=== PATIENT | male | born 1995 | race African-American/Black ===

== ENCOUNTER 2018-02-19 15:18 | Emergency (ER) | payer SELFPAY ==
[2018-02-19] MEDS ORDERED: Ketorolac Tromethamine 60 MG/2 ML VIAL ONE (17:10)
[2018-02-19] MEDS ORDERED: HYDROcodone/Acetaminophen 5/325 mg Tablet ONE (17:10)
--- NOTE | 2018-02-19 18:31 | RAD ---
LUMBAR SPINE THREE VIEWS: INDICATIONS: Back injured while lifting a heavy piece of furniture. COMPARISON: None. FINDINGS: There are five lumbar type vertebrae. Spine alignment and vertebral body heights are preserved. The re is mild loss of the normal disk space height at L5-S1, possibly related to early disk degenerative disease. The SI joints are normal appearing. IMPRESSION: 1. No acute osseous abnormality. 2. Mild suspected disk degenerative disease at L5-S1. POS: [facility]
== END 2018-02-19 18:29 | disposition home or self-care (01) ==
LOC: ERS 15:18
DX: M62.830 Muscle spasm of back (principal); M54.5 Low back pain; F17.200 Nicotine dependence, unspecified, uncomplicated; X50.9XXA Other and unspecified overexertion or strenuous movements or postures, initial encounter
CPT/HCPCS: 72100; 96372; J1885

== ENCOUNTER 2018-02-24 14:14 | Emergency (ER) | payer SELFPAY ==
[2018-02-24] MEDS ORDERED: Cyclobenzaprine 10 MG TAB ONE (15:07)
[2018-02-24] MEDS ORDERED: Ketorolac Tromethamine 60 MG/2 ML VIAL ONE (15:29)
== END 2018-02-24 17:19 | disposition home or self-care (01) ==
LOC: ERS 14:14
DX: M54.5 Low back pain (principal); Z79.899 Other long term (current) drug therapy
CPT/HCPCS: 36415; 85652; 96372; J1885

== ENCOUNTER 2019-10-14 11:31 | Emergency (ER) | payer OTHER, SELFPAY ==
[2019-10-15 15:34] LABS: SARS-CoV-2 MS2 Positive; SARS-CoV-2 N Gene Negative; SARS-CoV-2 S Gene Negative; SARS-CoV-2 orf1ab Negative
== END 2019-10-14 12:33 | disposition home or self-care (01) ==
LOC: ERS 11:31
DX: Z20.828 Contact with and (suspected) exposure to other viral communicable diseases (principal)
CPT/HCPCS: 87635; 99283; U0003